=== PATIENT | male | born 1955 | race Caucasian/White ===

== ENCOUNTER 2022-03-26 14:32 | Inpatient (IN) | payer BC, OTHER ==
[~2022-03-26] VITALS: Ht 162.6 cm; Wt 68.5 kg
[2022-03-26 15:13] LABS: HEMATOCRIT 26.3 % (36.7-47.1); MEAN CORPUSCULAR VOLUME 88.2 fL (73.0-96.2); PLATELET COUNT (AUTO) 237 K/uL (152-348)
[2022-03-26 15:17] LABS: CARBON DIOXIDE 31 mmol/L (21-32); CHLORIDE 106 mmol/L (98-107); CREATININE 0.4 mg/dL (0.6-1.3); GLUCOSE 109 mg/dL (74-106); POTASSIUM 3.8 mmol/L (3.5-5.1); UREA NITROGEN, BLOOD 22 mg/dL (7-18)
[2022-03-26 15:30] LABS: ALANINE AMINOTRANSFERASE 7 U/L (16-63); ALKALINE PHOSPHATASE 196 U/L (50-136); ASPARTATE AMINOTRANSFERASE 21 U/L (15-37); BILIRUBIN,DIRECT 0.3 mg/dL (0.0-0.2); BILIRUBIN,TOTAL 0.5 mg/dL (0.2-1.0); TOTAL PROTEIN, SERUM 7.2 g/dL (6.4-8.2)
[2022-03-26] MEDS ORDERED: ASCO500P18 GT (15:30)
[2022-03-26] MEDS ORDERED: POLY17PO4 GT (15:30)
[2022-03-26] MEDS ORDERED: DOCU100C36 GT (15:30)
[2022-03-26] MEDS ORDERED: QUET25TA GT (15:30)
[2022-03-26] MEDS ORDERED: ACET-2605 PO (15:30)
[2022-03-26] MEDS ORDERED: INSU100V7 SQ (15:30)
[2022-03-26] MEDS ORDERED: ACET325C7 PO (15:30)
[2022-03-26] MEDS ORDERED: FURO40TA5 GT (15:30)
[2022-03-26] MEDS ORDERED: INSU100C4 SQ (15:30)
[2022-03-26] MEDS ORDERED: BISA10SU61 RC (15:30)
[2022-03-26] MEDS ORDERED: MULT-213 GT (15:30)
[2022-03-26] MEDS ORDERED: LEVA0.6320 IH (15:30)
[2022-03-26] MEDS ORDERED: PIPE3.379 IV (15:30)
[2022-03-26 17:43] LABS: *BILIRUBIN,URIN NEGATIVE (NEGATIVE); *BLOOD, URINE 1+ (NEGATIVE); *CLARITY,URINE CLEAR (CLEAR); *COLOR,URINE YELLOW (YELLOW); *KETONES,URINE NEGATIVE (NEGATIVE); *UROBILINOGEN,URINE 0.2 E.U./dl (NORMAL); LEUKOCYTE ESTERASE ,URINE 2+ (NEGATIVE); NITRITE, URINE NEGATIVE (NEGATIVE); PH,URINE 8.5 (5.0-8.0); UGLUCOSE NEGATIVE (NEGATIVE)
[2022-03-26 18:31] LABS: WBC,URINE 20-50 /HPF (0-3)
[2022-03-26 18:32] LABS: BACTERIA,URINE MODERATE /HPF (NONE SEEN); SQUAMOUS EPITHELIAL CELL,UR FEW /HPF (NONE SEEN)
[2022-03-26 18:49] LABS: EOSINOPHILS % (MANUAL) 33 % (0-8); LYMPHOCYTES % (MANUAL) 19 % (20-40); MONOCYTES % (MANUAL) 5 % (2-10); NEUTROPHILS % (MANUAL) 43 % (42-75)
[2022-03-26] MEDS ORDERED: BISACODYL 10 MG SUPP.RECT RC PRN (20:45)
[2022-03-26] MEDS ORDERED: Medication Not On Formulary EA (Acetaminophen (Tylenol) 650 MG) PO SCH (20:45)
[2022-03-26] MEDS ORDERED: CEFTRIAXONE 1 G in IV DEXTROSE 5% 50 ML IV SCH (21:00)
[2022-03-26] MEDS ORDERED: DEXTROSE 50% 50 ML DISP.SYRIN IV PRN (21:00)
[2022-03-26] MEDS ORDERED: INSULIN REGULAR, HUMAN 300 UNIT/3 ML VIAL SQ PRN (21:00)
[2022-03-26] MEDS ORDERED: CEFTRIAXONE /D5W 50ML IVPB **ER PYXIS IV ONE ×2 (21:05→21:14)
[2022-03-26] MEDS ORDERED: QUETIAPINE FUMARATE 25 MG TABLET ONE (21:06)
[2022-03-26] MEDS ORDERED: INSULIN GLARGINE,HUM 300 UNITS/3 ML CARTRIDGE SQ ONE (21:08)
[2022-03-26] MEDS: QUETIAPINE FUMARATE 25 MG TABLET GT SCH (21:29)
[2022-03-26] MEDS: INSULIN GLARGINE,HUM 300 UNITS/3 ML CARTRIDGE SQ SCH (22:14)
[2022-03-27] MEDS: BLOOD SUGAR DIAGNOSTIC 1 EACH STRIP VI SCH ×4 (02:37→17:54)
[2022-03-27 06:31] LABS: ALANINE AMINOTRANSFERASE 13 U/L (16-63); ALKALINE PHOSPHATASE 142 U/L (50-136); ASPARTATE AMINOTRANSFERASE 23 U/L (15-37); BILIRUBIN,TOTAL 0.6 mg/dL (0.2-1.0); CARBON DIOXIDE 28 mmol/L (21-32); CHLORIDE 108 mmol/L (98-107); CHOLESTEROL 81 mg/dL (<200); CREATININE 0.6 mg/dL (0.6-1.3); GLUCOSE 78 mg/dL (74-106); HDL CHOLESTEROL 23 mg/dL (40-60); HEMATOCRIT 25.6 % (36.7-47.1); MAGNESIUM 1.9 mg/dL (1.8-2.4); MEAN CORPUSCULAR HEMOGLOBIN 29.3 uug (23.8-33.4); MEAN CORPUSCULAR VOLUME 88.1 fL (73.0-96.2); PHOSPHOROUS 3.4 mg/dL (2.5-4.9); PLATELET COUNT (AUTO) 239 K/uL (152-348); POTASSIUM 3.4 mmol/L (3.5-5.1); TOTAL PROTEIN, SERUM 6.8 g/dL (6.4-8.2); TRIGLYCERIDES 82 MG/DL (30-150); UREA NITROGEN, BLOOD 20 mg/dL (7-18)
[2022-03-27 06:53] LABS: IRON, SERUM 48 ug/dL (50-175)
[2022-03-27] MEDS ORDERED: Medication Not On Formulary EA (Multivitamins W-Minerals (Multivitamin With Minerals) 1 GT SCH (09:00)
[2022-03-27] MEDS ORDERED: MULTIVIT, IRON, MIN NO. 8, FA TABLET GT SCH (09:00)
[2022-03-27] MEDS ORDERED: Medication Not On Formulary EA (Ascorbic Acid (Vitamin C) 500 MG) GT SCH (09:00)
[2022-03-27] MEDS ORDERED: DOCUSATE SODIUM 100 MG CAPSULE PO SCH (09:00)
[2022-03-27] MEDS ORDERED: DOCUSATE SODIUM 100 MG/10 ML LIQUID UDC ONE ×2 (09:14→16:52)
[2022-03-27] MEDS ORDERED: FUROSEMIDE 20 MG TABLET ONE (09:14)
[2022-03-27] MEDS ORDERED: ASCORBIC ACID 500 MG TABLET ONE (09:15)
[2022-03-27] MEDS ORDERED: ACETAMINOPHEN 650 MG/20.3 ML LIQUID UDC ONE (09:15)
[2022-03-27] MEDS ORDERED: QUETIAPINE FUMARATE 25 MG TABLET ONE (09:15)
[2022-03-27] MEDS ORDERED: MIRALAX 17 GM POWD.PACK ONE (09:15)
[2022-03-27] MEDS: ACETAMINOPHEN 650 MG/20.3 ML LIQUID UDC GT PRN ×2 (09:16→21:46)
[2022-03-27] MEDS: ASCORBIC ACID 500 MG TABLET GT SCH (09:16)
[2022-03-27] MEDS: QUETIAPINE FUMARATE 25 MG TABLET GT SCH ×2 (09:16→21:46)
[2022-03-27] MEDS: MIRALAX 17 GM POWD.PACK GT SCH (09:16)
[2022-03-27] MEDS: FUROSEMIDE 40 MG TABLET GT SCH (09:16)
[2022-03-27] MEDS: MULTIVIT, IRON, MIN NO. 8, FA TABLET GT SCH (11:45)
[2022-03-27] MEDS: DOCUSATE SODIUM 100 MG/10 ML LIQUID UDC GT SCH (17:02)
[2022-03-27 18:49] VITALS: BP 134/76
[2022-03-27 20:07] VITALS: BP 121/72
[2022-03-27] MEDS: INSULIN GLARGINE,HUM 300 UNITS/3 ML CARTRIDGE SQ SCH (21:00)
[2022-03-27] MEDS ORDERED: CEFTRIAXONE 1 G in IV DEXTROSE 5% 50 ML IV SCH (21:00)
[2022-03-28 00:17] VITALS: BP 104/60
[2022-03-28] MEDS: BLOOD SUGAR DIAGNOSTIC 1 EACH STRIP VI SCH ×4 (00:30→17:41)
[2022-03-28] MEDS: GLUCERNA 1.2 1000ML LIQUID GT SCH (03:00)
[2022-03-28 04:16] VITALS: BP 105/59
[2022-03-28 06:36] LABS: HEMATOCRIT 26.7 % (36.7-47.1); MEAN CORPUSCULAR HEMOGLOBIN 29.8 uug (23.8-33.4); MEAN CORPUSCULAR VOLUME 89.5 fL (73.0-96.2); PLATELET COUNT (AUTO) 213 K/uL (152-348)
[2022-03-28 06:39] LABS: ALANINE AMINOTRANSFERASE 13 U/L (16-63); ALKALINE PHOSPHATASE 134 U/L (50-136); ASPARTATE AMINOTRANSFERASE 24 U/L (15-37); BILIRUBIN,TOTAL 0.5 mg/dL (0.2-1.0); CARBON DIOXIDE 28 mmol/L (21-32); CHLORIDE 107 mmol/L (98-107); CREATININE 0.5 mg/dL (0.6-1.3); GLUCOSE 124 mg/dL (74-106); PHOSPHOROUS 3.4 mg/dL (2.5-4.9); POTASSIUM 3.4 mmol/L (3.5-5.1); TOTAL PROTEIN, SERUM 6.7 g/dL (6.4-8.2); UREA NITROGEN, BLOOD 18 mg/dL (7-18)
[2022-03-28 08:00] VITALS: BP 107/55
[2022-03-28] MEDS ORDERED: POTASSIUM CHLORIDE 20 MEQ POWDER PACKET GT ONE (08:45)
[2022-03-28] MEDS: MIRALAX 17 GM POWD.PACK GT SCH (09:18)
[2022-03-28] MEDS: FUROSEMIDE 40 MG TABLET GT SCH (09:21)
[2022-03-28] MEDS: DOCUSATE SODIUM 100 MG/10 ML LIQUID UDC GT SCH ×2 (09:21→16:36)
[2022-03-28] MEDS: MULTIVIT, IRON, MIN NO. 8, FA TABLET GT SCH (09:21)
[2022-03-28] MEDS: QUETIAPINE FUMARATE 25 MG TABLET GT SCH ×2 (09:21→21:21)
[2022-03-28] MEDS: ASCORBIC ACID 500 MG TABLET GT SCH (09:21)
[2022-03-28 11:54] VITALS: BP 112/62
[2022-03-28] MEDS ORDERED: REMEDY ESSENTIAL ZINC PASTE 113 GM TOP PRN (12:00)
[2022-03-28 16:27] VITALS: BP 116/58
[2022-03-28 19:00] LABS: BAND % (MANUAL) 1 % (0-10); EOSINOPHILS % (MANUAL) 25 % (0-8); LYMPHOCYTES % (MANUAL) 11 % (20-40); NEUTROPHILS % (MANUAL) 63 % (42-75)
[2022-03-28 20:00] VITALS: BP 101/49
[2022-03-28] MEDS: REMEDY ESSENTIAL ZINC PASTE 113 GM TOP SCH (21:21)
[2022-03-28] MEDS: CEFEPIME HCL 1 G in IV DEXTROSE 5% 50 ML IV SCH (21:21)
[2022-03-28] MEDS: INSULIN GLARGINE,HUM 300 UNITS/3 ML CARTRIDGE SQ SCH (21:29)
[2022-03-28] MEDS ORDERED: LIDOCAINE 1%-EPI 1:200,000 MPF 30 ML VIAL IJ ONE (21:30)
[2022-03-28] MEDS: THERAHONEY GEL 1.5 OZ TUBE TOP SCH ×2 (21:30→21:55)
[2022-03-28] MEDS: SODIUM HYPOCHLORITE 0.125% (QUARTER STRENGTH) 473 ML BOTTLE TP SCH ×2 (21:30→21:55)
[2022-03-28] MEDS: SILVER NITRATE APPLICATOR STICK EACH TP ONE ×2 (21:55→22:17)
[2022-03-28] MEDS: VANCOMYCIN IV 750 MG in IV DEXTROSE 5% 250 ML IV SCH (22:11)
[2022-03-29 00:03] VITALS: BP 109/54
[2022-03-29] MEDS: CEFEPIME HCL 1 G in IV DEXTROSE 5% 50 ML IV SCH ×2 (04:07→12:27)
[2022-03-29 04:09] VITALS: BP 108/60
[2022-03-29] MEDS: VANCOMYCIN IV 750 MG in IV DEXTROSE 5% 250 ML IV SCH ×2 (05:01→13:30)
[2022-03-29] MEDS: GLUCERNA 1.2 1000ML LIQUID GT SCH (05:01)
[2022-03-29 06:26] LABS: MEAN CORPUSCULAR HEMOGLOBIN 29.5 uug (23.8-33.4); MEAN CORPUSCULAR VOLUME 90.8 fL (73.0-96.2); PLATELET COUNT (AUTO) 228 K/uL (152-348)
[2022-03-29 06:37] LABS: CARBON DIOXIDE 27 mmol/L (21-32); CHLORIDE 110 mmol/L (98-107); CREATININE 0.6 mg/dL (0.6-1.3); GLUCOSE 195 mg/dL (74-106); PHOSPHOROUS 3.4 mg/dL (2.5-4.9); POTASSIUM 3.7 mmol/L (3.5-5.1); UREA NITROGEN, BLOOD 14 mg/dL (7-18)
[2022-03-29 07:46] VITALS: BP 91/62
[2022-03-29] MEDS: DOCUSATE SODIUM 100 MG/10 ML LIQUID UDC GT SCH ×2 (08:06→16:56)
[2022-03-29] MEDS: MIRALAX 17 GM POWD.PACK GT SCH (08:06)
[2022-03-29] MEDS: ASCORBIC ACID 500 MG TABLET GT SCH (08:06)
[2022-03-29] MEDS: QUETIAPINE FUMARATE 25 MG TABLET GT SCH (08:06)
[2022-03-29] MEDS: FUROSEMIDE 40 MG TABLET GT SCH (08:06)
[2022-03-29] MEDS: REMEDY ESSENTIAL ZINC PASTE 113 GM TOP SCH (08:07)
[2022-03-29] MEDS: SODIUM HYPOCHLORITE 0.125% (QUARTER STRENGTH) 473 ML BOTTLE TP SCH (08:07)
[2022-03-29] MEDS: MULTIVIT, IRON, MIN NO. 8, FA TABLET GT SCH (08:07)
[2022-03-29] MEDS: THERAHONEY GEL 1.5 OZ TUBE TOP SCH (08:08)
[2022-03-29] MEDS: PROTEIN SUPPLEMENT (PROSTAT) 30 ML LIQUID GT SCH ×2 (08:16→16:58)
[2022-03-29 11:30] VITALS: BP 98/60
[2022-03-29] MEDS ORDERED: SILVER NITRATE APPLICATOR STICK EACH TP ONE (13:30)
[2022-03-29] MEDS ORDERED: LIDOCAINE 1%-EPI 1:200,000 MPF 30 ML VIAL IJ ONE (13:30)
[2022-03-29] MEDS ORDERED: AMMO225L7 TP (13:46)
[2022-03-29] MEDS ORDERED: VANC750F2 IV (13:46)
[2022-03-29] MEDS ORDERED: SODI473S8 TP (13:46)
[2022-03-29] MEDS ORDERED: CEFE1FRO IV (13:46)
[2022-03-29 16:54] VITALS: BP 114/61
[2022-03-29] MEDS ORDERED: AMMONIUM LACTATE 12% LOTION 225 GM BOTTLE TP SCH (17:00)
[2022-03-29] MEDS ORDERED: MEROPENEM 0.5 G in IV NORMAL SALINE 50 ML IV SCH (18:30)
[2022-03-29] MEDS ORDERED: VANCOMYCIN IV 750 MG in IV DEXTROSE 5% 250 ML IV SCH ×2 (18:32→22:00)
[2022-03-29] MEDS ORDERED: MEROPENEM 1 G in IV NORMAL SALINE 100 ML IV SCH (20:00)
[2022-03-29] MEDS ORDERED: INSULIN GLARGINE,HUM 300 UNITS/3 ML CARTRIDGE SQ SCH (21:00)
== END 2022-03-29 18:35 | DRG 981 ==
LOC: ER 14:38 → TRANSITION 03-27 10:34 → TELE3 03-27 18:08 → TELE-TD3 03-27 18:51
PROVIDERS: ADMIT Internal Medicine; ATTEND Internal Medicine
PROC: 5A1945Z Respiratory Ventilation, 24-96 Consecutive Hours (ICD-10-PCS; principal; 2022-03-27)
PROC: 05HC33Z Insertion of Infusion Device into Left Basilic Vein, Percutaneous Approach (ICD-10-PCS; 2022-03-28)
PROC: 0KBP3ZZ Excision of Left Hip Muscle, Percutaneous Approach (ICD-10-PCS; 2022-03-29)
PROC: 0KBN3ZZ Excision of Right Hip Muscle, Percutaneous Approach (ICD-10-PCS; 2022-03-29)
DX: N39.0 Urinary tract infection, site not specified (principal); L89.154 Pressure ulcer of sacral region, stage 4; L89.224 Pressure ulcer of left hip, stage 4; E43 Unspecified severe protein-calorie malnutrition; I50.31 Acute diastolic (congestive) heart failure; J96.10 Chronic respiratory failure, unspecified whether with hypoxia or hypercapnia; Z16.12 Extended spectrum beta lactamase (ESBL) resistance; I85.10 Secondary esophageal varices without bleeding; K76.6 Portal hypertension; J98.11 Atelectasis; Z99.11 Dependence on respirator [ventilator] status; G93.40 Encephalopathy, unspecified; M84.48XA Pathological fracture, other site, initial encounter for fracture; D68.59 Other primary thrombophilia; N48.89 Other specified disorders of penis; N50.89 Other specified disorders of the male genital organs; E11.9 Type 2 diabetes mellitus without complications; S90.821A Blister (nonthermal), right foot, initial encounter; X58.XXXA Exposure to other specified factors, initial encounter; Y92.129 Unspecified place in nursing home as the place of occurrence of the external cause; M20.42 Other hammer toe(s) (acquired), left foot; M20.41 Other hammer toe(s) (acquired), right foot; L85.3 Xerosis cutis; R60.1 Generalized edema; B96.4 Proteus (mirabilis) (morganii) as the cause of diseases classified elsewhere; R13.10 Dysphagia, unspecified; N43.3 Hydrocele, unspecified; K74.60 Unspecified cirrhosis of liver; M16.11 Unilateral primary osteoarthritis, right hip; K31.89 Other diseases of stomach and duodenum; Z20.822 Contact with and (suspected) exposure to COVID-19; Z93.0 Tracheostomy status; Z93.6 Other artificial openings of urinary tract status; S06.5X9D Traumatic subdural hemorrhage with loss of consciousness of unspecified duration, subsequent encounter; X58.XXXD Exposure to other specified factors, subsequent encounter; Z79.4 Long term (current) use of insulin; D63.8 Anemia in other chronic diseases classified elsewhere; Z74.09 Other reduced mobility; Z87.01 Personal history of pneumonia (recurrent); Z98.2 Presence of cerebrospinal fluid drainage device; Z86.73 Personal history of transient ischemic attack (TIA), and cerebral infarction without residual deficits; M43.10 Spondylolisthesis, site unspecified; Z98.890 Other specified postprocedural states
CPT/HCPCS: 36415; 70030-TC; 70450; 71045; 76870; 83550; 83735; 84100; 84443; 84484; 85025; 87077; 87086; 93005; 94002; 94003; 94760; A6209; A6213; G0378; J0692; J0696; J1815; J2185; J3370; J3490; J7040; J7050